=== PATIENT | female | born 1990 | race Caucasian/White ===

== ENCOUNTER 2022-02-13 13:01 | Emergency (ER) | payer OTHER ==
[~2022-02-13 13:01] MED LIST: KEFLEX CAP 500500 MG PO
[2022-02-13 14:46] LABS: HEMOGLOBIN 14.6 gm/dl (12.3-15.3); RED BLOOD COUNT 5.02 M/UL (4.00-5.10); WHITE BLOOD COUNT 10.1 K/UL (4.5-11.0)
[2022-02-13 18:34] LABS: BUN/CREATININE RATIO 18 (0-10)
[2022-02-13] MEDS ORDERED: ZOFRAN ODT 4 MG4 MG PO (20:35)
[2022-02-13] MEDS ORDERED: MACROBID 100 M100 MG PO (20:35)
[2022-02-13] MEDS ORDERED: AMOX TR-K CLV1 EAC4 PO (20:35)
[2022-02-13] MEDS ORDERED: BENTYL 20MG TAB20 MG PO (20:35)
== END 2022-02-13 20:47 | disposition home or self-care (01) ==
LOC: ER1 13:01
PROVIDERS: Physician Assistant
DX: R10.9 Unspecified abdominal pain (principal); R50.9 Fever, unspecified; R10.819 Abdominal tenderness, unspecified site; R19.7 Diarrhea, unspecified; Z20.822 Contact with and (suspected) exposure to COVID-19
CPT/HCPCS: 0240U; 80053; 81001; 83605; 84703; 85025; 87040; 96374; 96375; 99284; J1885; J2405; Q9967